=== PATIENT | female | born 1970 | race American Indian/Alaskan Native ===

== ENCOUNTER 2017-03-23 12:21 | Emergency (ER) | payer BC, MEDICAID ==
[2017-03-23 12:21] VITALS: BMI 38.2
[2017-03-23 13:04] VITALS: TEMP 98.5
--- NOTE | 2017-03-23 13:22 | ED PDOC ---
Arrival/HPI - General Historian: Patient - History of Present Illness Time/Duration: < week Symptom Onset: Sudden Symptom Course: Improving Quality: Aching, Pressure Severity Level: 6 Activities at Onset: Rest <Aric Meadows - Last Filed: 03/23/17 15:28> <RadhaerasmocarolinaAnamaria - Last Filed: 03/23/17 15:45> - General Chief Complaint: Headache Time Seen by Provider: 03/23/17 13:22 - History of Present Illness Narrative History of Present Illness (Text): 03/23/17 13:34 46yo F with no significant PMHx here for evaluation of headache for the past 3 days. States that the headache started in the forehead and radiates to the back of the head. Associated with left-sided ear fullness. States that she took two Tylenol and Alieve when the headache started and got mild relief. Did not take anything for pain yesterday. Did not take anything for mild headache today. Currently, denies any headache. She states that she went to her PMD today and was told that her BP was 160s/100's and was discharged home. She states that she became worried and came to the ER for further evaluation. Currently denies any fever, chills. No Abd pain. no chest pain. No SOB. No N/V/D. No Urinary Symptoms. No Vision changes. No Auditory changes. PMD: Dr. Carrillo PMHx: Remote hx of SVT converted with Adenosine. No episodes since PSHx: x2, Cholecystectomy Family hx: Maternal - Cardiac Disease, HTN, Stroke. Paternal - HTN Social Hx: Works as nurse. Denies Tob, Rare ETOH use, Denies illicit drugs NKDA (Aric Meadows) Past Medical History - Provider Review Nursing Documentation Reviewed: Yes - Travel History If Yes, travel location?: [facility] - Infectious Disease Hx of Infectious Diseases: None - Tetanus Immunization Tetanus Immunization: Unknown - Cardiac Hx Cardiac Disorders: Yes Other/Comment: SVT - Pulmonary Hx Respiratory Disorders: No - Neurological Hx Neurological Disorder: No - HEENT Hx HEENT Disorder: No - Renal Hx Renal Disorder: No - Endocrine/Metabolic Hx Endocrine Disorders: No - Hematological/Oncological Hx Blood Disorders: No - Integumentary Hx Dermatological Disorder: No - Musculoskeletal/Rheumatological Hx Musculoskeletal Disorders: No - Gastrointestinal Hx Gastrointestinal Disorders: No - Genitourinary/Gynecological Hx Genitourinary Disorders: No - Psychiatric Hx Psychophysiologic Disorder: No Hx Depression: No Hx Emotional Abuse: No Hx Physical Abuse: No Hx Substance Use: No - Surgical History Hx Section: Yes Hx Cholecystectomy: Yes Hx Tubal Ligation: Yes - Anesthesia Hx Anesthesia: Yes Hx Anesthesia Reactions: No - Suicidal Assessment Feels Threatened In Home Enviroment: No <Aric Meadows - Last Filed: 03/23/17 15:28> Family/Social History - Physician Review Nursing Documentation Reviewed: Yes Family/Social History: Hypertension, CAD/TX Smoking Status: Never Smoked Hx Alcohol Use: Yes Hx Substance Use: No Hx Substance Use Treatment: No <Aric Meadows - Last Filed: 03/23/17 15:28> Allergies/Home Meds <Aric Meadows - Last Filed: 03/23/17 15:28> <Anamaria Jones - Last Filed: 03/23/17 15:45> Allergies/Adverse Reactions: Allergies No Known Allergies Allergy (Verified 03/23/17 12:59) Home Medications: Home Meds Medication Instructions Recorded Confirmed No Known Home Med 01/01/13 03/23/17 Review of Systems - Review of Systems Constitutional: Normal. absent: Fevers Eyes: absent: Vision Changes ENT: absent: Hearing Changes Respiratory: absent: SOB, Cough Cardiovascular: absent: Chest Pain, Palpitations, Edema, Calf Pain, [place] Gastrointestinal: absent: Abdominal Pain, Nausea, Vomiting Genitourinary Female: absent: Dysuria, Hematuria Musculoskeletal: absent: Back Pain, Neck Pain Neurological: Headache Endocrine: absent: Diaphoresis Psychiatric: absent: Anxiety, Depression <AbdielAric - Last Filed: 03/23/17 15:28> Physical Exam Vital Signs Reviewed: Yes Temperature: Afebrile Blood Pressure: Hypertensive Pulse: Tachycardic Respiratory Rate: Normal Appearance: Positive for: Well-Appearing, Comfortable Pain Distress: None Mental Status: Positive for: Alert and Oriented X 3 - Systems Exam Head: Present: Atraumatic, Normocephalic Extroacular Muscles: Present: EOMI Conjunctiva: Present: Normal Mouth: Present: Moist Mucous Membranes, Normal Tounge, Normal Teeth. No: Drooling Pharnyx: Present: Normal. No: ERYTHEMA, EXUDATE, TONSILS ENLARGED, Uvular Deviation Neck: Present: Normal Range of Motion. No: JVD, Lymphadenopathy Respiratory/Chest: Present: Clear to Auscultation, Good Air Exchange. No: Respiratory Distress, Accessory Muscle Use, Wheezes, Rhonchi, Tachypneic Cardiovascular: Present: Regular Rate and Rhythm, Normal S1, S2. No: Murmurs Abdomen: No: Tenderness, Distention, Peritoneal Signs, Rebound, Guarding Upper Extremity: Present: Normal Inspection Lower Extremity: Present: Normal Inspection. No: Edema, CALF TENDERNESS Neurological: Present: GCS=15 Skin: Present: Warm, Dry, Normal Color Psychiatric: Present: Alert, Oriented x 3 <Aric Meadows - Last Filed: 03/23/17 15:28> Medical Decision Making <Aric Meadows - Last Filed: 03/23/17 15:28> <Anamaria Jones - Last Filed: 03/23/17 15:45> ED Course and Treatment: 03/23/17 13:56 46yo F with headaches - Likely secondary to undiagnosed HTN - CBC/CMP - HCTZ - Reassess and dispo 03/23/17 15:28 EKG - interpreted by me. NSR @71. Normal Axix. No ST changes apparent. 03/23/17 15:34 Upon reevaluation, patient's BP returned to normal spontaneously. She denies any complaints. Held HCTZ order. Labs wnl Discussed findings with patient. Patient to follow up with her PMD. She understands and agrees with plan. (Aric Meadows) 03/23/17 15:43 Patient seen by resident and then evaluated by me. Patient denied headache on evaluation but reports that she was told she had htn at pmds office so came to ED for evaluation. She denied chest pain, shortness of breath, vision changes. Labs were grossly normal. EKG showed NSR at 71bpm with sinus arrhythmia. Patient refused medication as she continued to deny headache. She was neurologically intact and ambulating around the ED. BP spontaneously returned to normal and she was instructed to follow-up with PMD for further evaluation of htn. (Anamaria Jones) - Lab Interpretations Lab Results: 03/23/17 14:00 03/23/17 14:00 Lab Results 03/23/17 14:00: Sodium 143, Potassium 3.9, Chloride 107, Carbon Dioxide 25, Anion Gap 15, BUN 10, Creatinine 0.8, Est GFR ( Amer) > 60, Est GFR (Non- Af Amer) > 60, Random Glucose 89, Calcium 9.4, Total Bilirubin 0.2, AST 26, ALT 28, Alkaline Phosphatase 81, Total Protein 7.7, Albumin 4.2, Globulin 3.5, Albumin/Globulin Ratio 1.2 03/23/17 14:00: WBC 8.3, RBC 5.01, Hgb 13.3, Hct 38.8, MCV 77.4 L, MCH 26.5, MCHC 34.3, RDW 14.6 H, Plt Count 271, MPV 9.8, Gran % 71.9 H, Lymph % (Auto) 21.4 L, [place] % (Auto) 5.5, Eos % (Auto) 1.1 L, Baso % (Auto) 0.1, Gran # 5.96, Lymph # 1.8, [place] # 0.5, Eos # 0.1, Baso # 0.01 - Medication Orders Current Medication Orders: Discontinued Medications Hydrochlorothiazide (Microzide) 12.5 mg PO STAT STA Stop: 03/23/17 14:16 Last Admin: 03/23/17 15:16 Dose: - PA / HISTORY DEPARTMENT CHAIR / Resident Statement BRAYDON has reviewed & agrees with the documentation as recorded. BRAYDON has examined the patient and agrees with the treatment plan. <Aric Meadows - Last Filed: 03/23/17 15:28> Disposition/Present on Arrival - Present on Arrival Any Indicators Present on Arrival: No History of DVT/PE: No History of Uncontrolled Diabetes: No Urinary Catheter: No History of Decub. Ulcer: No History Surgical Site Infection Following: None - Disposition Have Diagnosis and Disposition been Completed?: Yes Disposition Time: 15:29 Patient Plan: Discharge <Aric Meadows - Last Filed: 03/23/17 15:28> - Present on Arrival Any Indicators Present on Arrival: No - Disposition Have Diagnosis and Disposition been Completed?: Yes Patient Plan: Discharge <Anamaria Jones - Last Filed: 03/23/17 15:45> - Disposition Diagnosis: Hypertension Disposition: HOME/ ROUTINE Patient Problems: Current Active Problems Problem Status Onset Headache Acute Condition: GOOD Additional Instructions: 1. Follow up with your Primary Care Physician within 3 days. 2. Check BP at home and keep record. 3. Return to the ER with any concerning symptoms. Forms: [facility] (Yakut), WORK NOTE
[2017-03-23 14:22] LABS: BASO # 0.01 K/mm3 (0.0-2.0); BASO % 0.1 % (0.0-3.0); EOS # 0.1 (0.0-0.7); EOS % 1.1 % (1.5-5.0); GRAN # 5.96 (1.4-6.5); GRAN % 71.9 % (50.0-68.0); HEMATOCRIT 38.8 % (36.0-48.0); LYMPH # 1.8 (1.2-3.4); LYMPH % 21.4 % (22.0-35.0); MEAN CELL VOLUME 77.4 fl (80.0-105.0); MEAN CORPUSCULAR HEMOGLOBIN 26.5 pg (25.0-35.0); MEAN CORPUSCULAR HGB CONC 34.3 g/dl (31.0-37.0); MEAN PLATELET VOLUME 9.8 fl (7.0-11.0); MONO # 0.5 (0.1-0.6); MONO % 5.5 % (1.0-6.0); RED CELL DISTRIBUTION WIDTH 14.6 % (11.5-14.5); WHITE BLOOD COUNT 8.3 10^3/ul (4.5-11.0)
[2017-03-23 14:35] LABS: ALB/GLOB RATIO 1.2 (1.1-1.8); ALKALINE PHOSPHATASE 81 U/L (38-133); ALT/SGPT 28 U/L (7-56); AST/SGOT 26 U/L (15-39); BILIRUBIN,TOTAL 0.2 mg/dL (0.2-1.3); BLOOD UREA NITROGEN 10 mg/dL (7-21); CALCIUM 9.4 mg/dL (8.4-10.5); CARBON DIOXIDE 25 mmol/L (21-33); CHLORIDE 107 mmol/L (98-107); GFR AFRICAN-AMERICAN > 60; GLUCOSE,RANDOM 89 mg/dL (70-110); POTASSIUM 3.9 mmol/L (3.6-5.0); SODIUM 143 mmol/L (132-148); TOTAL PROTEIN 7.7 g/dL (5.8-8.3)
[2017-03-23 15:15] VITALS: BP 126/83; O2SAT 98
[2017-03-23 16:29] VITALS: PULSE 78; RESP 16
--- NOTE | 2017-03-23 19:07 | CARD ---
APPROVED REPORT EKG Measurement Heart [id number] <Conclusion> Normal sinus rhythm with sinus arrhythmia Normal ECG
== END 2017-03-23 16:29 | disposition home or self-care (01) ==
LOC: ED 12:21
DX: I10 Essential (primary) hypertension (principal)